=== PATIENT | female | born 1990 | race Caucasian/White ===

== ENCOUNTER 2016-11-11 02:07 | Emergency (ER) | payer OTHER ==
[~2016-11-11] VITALS: Ht 162.6 cm; Wt 161.3 kg
[~2016-11-11 02:07] MED LIST: AMOXICILLI250 MG/5 M PO; NIFEDIPINE ER30 MG; PREDNISOLO15 MG/5 M1 PO; ZITHROMAX200 MG/5 M PO
[2016-11-11 03:40] LABS: EOSINOPHIL (%) 2.1 % (0-5); EOSINOPHIL COUNT 0.2 K/uL (0-0.3); IMMATURE GRANULOCYTE (%) 0.2 % (0.0-0.7); INSTRUMENT ABS NEUTROPHIL CT 4.7 K/uL; LYMPHOCYTE COUNT 2.8 K/uL (1.0-2.8); MCH 29.7 PG (29.0-34.0); MCHC 33.2 G/DL (30.0-36.0); MCV 89.6 FL (83-99); MEAN PLAT.VOLUME 10.4 uM^3 (9.5-12.4); MONOCYTE (%) 6.2 % (3-12); MONOCYTE COUNT 0.5 K/uL (0-0.8); NEUTROPHIL (%) 56.8 % (45-76); NEUTROPHIL COUNT 4.7 K/uL (1.8-6.4); PLATELET COUNT 289 K/uL (156-360); RBC DIS.WIDTH-CV 11.8 % (11.8-14.6); RED BLOOD COUNT 4.24 M/uL (3.80-5.20); WHITE BLOOD COUNT 8.2 K/uL (4.1-10.2)
[2016-11-11 03:47] LABS: CHLORIDE 105 mEq/L (99-109); SODIUM 139 mEq/L (136-147)
[2016-11-11 03:49] LABS: GLUCOSE 99 mg/dL (70-99)
[2016-11-11 03:50] LABS: ANION GAP 10 MEQ/L (2-14)
[2016-11-11 03:51] LABS: TOTAL BILIRUBIN 0.4 mg/dL (0.0-1.0)
[2016-11-11 03:53] LABS: ALKALINE PHOSPHATASE 74 IU/L (3-129); GFR ESTIMATE (CALCULATED) > 59 mL/min/
[2016-11-11 03:54] LABS: UREA NITROGEN (BUN) 10 mg/dL (9-23)
[2016-11-11 04:04] LABS: QUANTITATIVE HCG < 4.0 MIU/ML
[2016-11-11] MEDS ORDERED: ANTIVERT25 MG PO (04:40)
[2016-11-11 04:44] LABS: ADD MIUA? YES; BILIRUBIN NEGATIVE; BLOOD NEGATIVE; COLOR AMBER ((YELLOW)); GLUCOSE (STRIP) NEGATIVE; KETONES 5; LEUKOCYTES NEGATIVE; NITRITE NEGATIVE; PROTEIN (STRIP) 30; SPECIFIC GRAVITY 1.032 (1.000-1.030)
[2016-11-11 04:52] VITALS: BP 164/94
[2016-11-11 05:07] LABS: BACTERIA NONE SEEN /HPF; CALCIUM OXALATE CRYSTALS 4+ /HPF; EPITHELIAL CELLS 4+ /HPF; MUCUS TRACE /LPF; RED BLOOD CELLS NONE SEEN /HPF (0-5); UCUL ADDED? NO; WHITE BLOOD CELLS 0-5 /HPF (0-5)
== END 2016-11-11 04:56 | disposition home or self-care (01) ==
LOC: EME 02:07
PROVIDERS: Emergency Medicine
DX: R42 Dizziness and giddiness (principal); I10 Essential (primary) hypertension
CPT/HCPCS: 80053; 81003; 84702; 85025; 99281; 99283

== ENCOUNTER 2016-11-28 19:18 | Emergency (ER) | payer SELFPAY ==
[~2016-11-28] VITALS: Ht 162.6 cm; Wt 163.1 kg
[~2016-11-28 19:18] MED LIST changes: +ANTIVERT25 MG PO
[2016-11-28 21:19] VITALS: BP 135/89
== END 2016-11-28 21:20 | disposition home or self-care (01) ==
LOC: EME 19:18
DX: J06.9 Acute upper respiratory infection, unspecified (principal); H92.02 Otalgia, left ear
CPT/HCPCS: 99281; 99283